=== PATIENT | female | born 1965 | race Caucasian/White ===

== ENCOUNTER 2017-08-31 18:04 | Emergency (ER) | payer BC ==
[2013-07-27 18:13] VITALS: BMI 31.2
[~2017-08-31 18:04] MED LIST: ASPIRIN325 MG PO; BAYER CHEWABLE81 MG PO; HYZAAR 100-25 T1 TAB PO; LISINOPRIL2.5 MG; LOPRESSOR25 MG PO; NICODERM C1 PATCH .1 TD; NORCO 5/325 TAB1 TA1 PO; PLAVIX75 MG PO; PRAVACHOL20 MG PO; PRINIVIL20 MG PO; ROBAXIN-750750 MG PO; ZANTAC300 MG PO
[2017-08-31 21:15] LABS: BASOPHILS 1.2 % (0-2); EOSINOPHILS 5.7 % (0-7); HEMATOCRIT 42.2 % (36.0-48.0); HEMOGLOBIN 14.1 g/dL (12-16); IMMATURE GRANULOCYTES 0.2 % (0-5); LYMPHOCYTES 32.6 % (15-50); MCH 29.6 pg (26.0-34.0); MCHC 33.4 g/dL (31.0-37.0); MCV 88.7 fL (80.0-100.0); MEAN PLATELET VOLUME 9.8 fL (7.4-10.4); MONOCYTES 8.5 % (2-11); NEUTROPHILS 51.8 % (40-80); RBC 4.76 10x6/uL (4.00-5.40); RDW 12.2 % (11.5-14.5); WBC 8.2 10x3/uL (4.8-10.8)
[2017-08-31 21:28] LABS: PLATELET COUNT 344 10x3/uL (130-400)
[2017-08-31 21:59] LABS: ALBUMIN 3.7 g/dL (3.4-5.0); BILIRUBIN - TOTAL 0.15 mg/dL (0.2-1.3); CALCIUM 9.7 mg/dL (8.5-10.1); CARBON DIOXIDE 28.7 mmol/L (21.0-32.0); CREATININE - SERUM 0.9 mg/dL (0.6-1.3); PROTEIN - SERUM 8.5 g/dL (6.4-8.2)
[2017-08-31 22:18] LABS: ANION GAP 13.1 mmol/L (8-16); POTASSIUM - SERUM 3.8 mmol/L (3.5-5.1)
[2017-08-31 22:45] LABS: APPEARANCE CLEAR (CLEAR); BILIRUBIN NEGATIVE (NEGATIVE); COLOR YELLOW (YELLOW); GLUCOSE NEGATIVE (NEGATIVE); KETONE NEGATIVE (NEGATIVE); NITRITE NEGATIVE (NEGATIVE); PROTEIN NEGATIVE (NEGATIVE); SPECIFIC GRAVITY 1.025 (1.005-1.020); UROBILINOGEN NORMAL (NORMAL)
== END 2017-08-31 23:34 | disposition home or self-care (01) ==
LOC: D.ER 18:04
PROVIDERS: Family Medicine
DX: J06.9 Acute upper respiratory infection, unspecified (principal); J01.90 Acute sinusitis, unspecified; J20.9 Acute bronchitis, unspecified; E11.9 Type 2 diabetes mellitus without complications; I10 Essential (primary) hypertension